=== PATIENT | male | born 1930 | race Two or more races ===

== ENCOUNTER 2018-09-08 13:20 | Emergency (ER) | payer MEDICARE, MEDICAID ==
[~2018-09-08] VITALS: Ht 167.6 cm; Wt 81.2 kg
[2018-09-08 14:18] LABS: Basophils # (auto) 0.1 uL; Basophils % (auto) 0.7 % (0.0-2.0); Eosinophils # (auto) 0.2 uL; Eosinophils % (auto) 2.2 % (0.0-7.0); Hemoglobin 14.4 g/dL (13.5-17.5); Lymphocytes # (auto) 1.2 uL; Lymphocytes % (auto) 12.8 % (10.0-50.0); Mean Corpuscular Hemoglobin 29.7 pg (28.0-32.0); Mean Corpuscular Hgb Conc. 32.7 g/dL (32.0-36.0); Mean Corpuscular Volume 90.7 fL (80.0-100.0); Monocytes # (auto) 0.7 uL; Monocytes % (auto) 7.8 % (0.0-12.0); Neutrophils % (auto) 76.5 % (37.0-80.0); Platelet Count (auto) 207 10^3/uL (140-450); Red Blood Cells 4.85 10^6/uL (4.5-5.90); Red Cell Distribution Width 15.7 % (11.8-14.3); White Blood Cell 9.2 10^3/uL (4.4-10.8)
[2018-09-08 14:32] LABS: Calcium 8.2 mg/dL (8.5-10.1); Chloride 108 mmol/L (98-107); Potassium 4.8 mmol/L (3.5-5.1); Sodium 139 mmol/L (136-145)
[2018-09-08 14:36] LABS: Alanine Aminotransferase 22 U/L (16-61); Albumin 3.5 g/dL (3.4-5.0); Amylase 29 U/L (25-115); Anion Gap 7 (5-15); Aspartate Aminotransferase 15 U/L (15-37); Blood Urea Nitrogen 29 mg/dL (7-18); Carbon Dioxide 24 mmol/L (21-32); GFR African American 73 mL/min; GFR Non-African American 60 mL/min; Glucose 108 mg/dL (74-106); Lipase 78 U/L (73-393)
[2018-09-08 14:42] LABS: Alkaline Phosphatase 98 U/L (45-117); Bilirubin, Total 0.6 mg/dL (0.2-1.0); Total Protein 7.9 g/dL (6.4-8.2)
[2018-09-08 16:23] VITALS: BP 131/61
== END 2018-09-08 17:36 | disposition home or self-care (01) ==
LOC: ER 13:20
DX: N40.0 Benign prostatic hyperplasia without lower urinary tract symptoms (principal); R11.2 Nausea with vomiting, unspecified
CPT/HCPCS: 36415; 71046; 74176; 80053; 82150; 83690; 84484; 85025; 93005; 99285; J7030